=== PATIENT | female | born 2000 | race African-American/Black ===

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

== ENCOUNTER 2020-02-25 15:50 | Emergency (ER) | payer BC ==
--- NOTE | 2020-02-25 15:58 | PDOC ---
Rapid Medical Evaluation Time Seen by Provider: 02/25/20 15:55 Medical Evaluation: Allergies Allergy/AdvReac Type Severity Reaction Status Date / Time No Known Allergies Allergy Verified 03/30/19 16:48 02/25/20 15:55 19 year old female complaining of left ankle pain and left wrist pain s/p fall. PE: l wrist ttp to medial aspect and with ulnar dev. L ankle ttp over lateral mal Plan: XR Pt to precede to ED for further eval
[2020-02-25 15:59] VITALS: BP 142/74; PULSE 83; TEMP 98.7; BMI 23.3
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
--- OUTSIDE RECORDS SUMMARY | 2020-02-25 16:55 | XMS ---
:2000 Author Organization [facility] Care Team Providers Name Role Phone Valdovinos, Fela Unavailable SANDRINE BERGER Unavailable AGYANDEL EVERETT, SANDRINE Unavailable Re-disclosure Warning The records that you are about to access may contain information from federally- assisted alcohol or drug abuse programs. If such information is present, then the following federally mandated warning applies: This information has been disclosed to you from records protected by federal confidentiality rules (42 CFR part 2). The federal rules prohibit you from making any further disclosure of this information unless further disclosure is expressly permitted by the written consent of the person to whom it pertains or as otherwise permitted by 42 CFR part 2. A general authorization for the release of medical or other information is NOT sufficient for this purpose. The Federal rules restrict any use of the information to criminally investigate or prosecute any alcohol or drug abuse patient.The records that you are about to access may contain highly sensitive health information, the redisclosure of which is protected by Article 27-F of the [facility] Public Health law. If you continue you may haveaccess to information: Regarding HIV / AIDS; Provided by facilities licensed or operated by the [facility] Office of Mental Health; or Provided by the [facility] Office for People With Developmental Disabilities. If such information is present, then the following [facility] mandated warning applies: This information has been disclosed to you from confidential records which are protected by state law. State law prohibits you from making any further disclosure of this information without the specific written consent of the person to whom it pertains, or as otherwise permitted by law. Any unauthorized further disclosure in violation of state law may result in a fine or snf sentence or both. A general authorization for the release of medical or other information is NOT sufficient authorization for further disclosure. Allergies and Adverse Reactions Type Description Substance Reaction Status Data Source(s ) Allergy to No Known Allergies No known [facility] ([facility] substance allergies [facility] ([facility] ) Allergy to No Known Allergies No known [facility] ([facility] substance allergies [facility] ([facility] ) Encounters Encounter Providers Location Date Indications Data Source(s ) Outpatient<td Attender: SANDRINE Lay 03/27/2019 [facility] PM EST - [place] 0">WALKINS</td> 03/27/2019 Health nter) <td>[facility]td><td>[facility]</td><td> 03/27/2019</td> <td></td> Outpatient<td Attender: Fela Lay 03/27/2019 AMYPepe AY ([facility] ID="encounterTy [facility] 10:55:00 [facility] AM EST - [place]ighb [place] 1">PATIENT 03/27/2019 [facility]) ADVOCACY</td><t 11:59:00 d>Fela PM EST Valdovinos</td><td >[facility]</td><td> 03/27/2019</td> <td></td> Immunizations Vaccine Date Status Description Data Source(s) MMR 03/27/2019 completed Measles,Mumps, 1 03/27/2019 Left Act aisha [facility] 04:10:00 PM Rubella (MMR) Arm (Administere d) Neighborhood ([facility]) Insurance Providers Payer name Policy type / Policy ID Covered Covered republican's Policy Plan Coverage type republican ID relationship to Lopez Information lopez BC OUT OF [id number] [place] [id number] [facility] 78 BCBS of Individual 0 Self 0 [place] - Policy [place] of Individual 0 Self 0 [place] [id number] S [id number] Blue Cross 78 Blue Shield PPO Problems, Conditions, and Diagnoses Code Display Name Description Problem Type Effective Dates Data Source(s) [id number] No Active No Active Problem 03/27/2019 YAMILETH ([place] Problems Problems 12:00:00 AM [facility]) [id number] No Active No Active Problem 03/27/2019 YAMILETH ([place] Problems Problems 12:00:00 AM [facility]) Results ID Date Data Source [id number] 04/29/2019 10:58:48 AM EST GREENWA Y ([place] [id number] [facility]) Name Value Range Interpretation Description Data Source(s ) Supporting Code Document(s ) No Results No Results No Results YAMILETH ([facility] Recorded For [facility]) ID Date Data Source [id number] 03/27/2019 04:39:35 PM EST GREENWA Y ([place] [id number] [facility]) Name Value Range Interpretation Description Data Source(s ) Supporting Code Document(s ) No Results No Results No Results YAMILETH ([facility] For [facility]) Procedure Social History Code Duration Value Status Description Data Source(s ) Smoking 03/27/2019 smoking status completed YAMILETH ( [place] 04:39:34 PM [facility]) Vital Signs ID Date Data Source UNK Name Value Range Interpretation Code Description Data Source(s) PhenX - pain, 0 0 YAMILETH ([facility]) protocol Pt presents today for MMR vaccine Body surface area Derived from 1.71 m2 1.71 m2 YAMILETH ([facility]) Pt presents today for MMR vaccine Body mass index (BMI) [Percentile] 69 6 9 YAMILETH ([facility]) Pt presents today for MMR vaccine Body mass index (BMI) 23.6 kg/m2 23.6 kg/m2 GRE ENWAY ([place] [Ratio] [facility]) Pt presents today for MMR vaccine Body weight 142 [lb_av] 142 [lb_av] YAMILETH ( [facility]) Pt presents today for MMR vaccine Body height 65 [in_us] 65 [in_us] YAMILETH ([facility]) Pt presents today for MMR vaccine Body temperature 98.4 [degF] 98.4 [degF] AMYW AY ([facility]) Pt presents today for MMR vaccine Heart rate 93 /min 93 /min YAMILETH ([facility]) Pt presents today for MMR vaccine Diastolic blood pressure 69 mm[Hg] 69 mm[Hg] YAMILETH ([facility]) Pt presents today for MMR vaccine Systolic blood pressure 108 mm[Hg] 108 mm[Hg] Vamsi STEINER ([facility]) Pt presents today for MMR vaccine
== END 2020-02-25 17:02 | disposition home or self-care (01) ==
LOC: JERFT 15:50
DX: S63.502A Unspecified sprain of left wrist, initial encounter (principal); S93.492A Sprain of other ligament of left ankle, initial encounter
CPT/HCPCS: 73110-TC-LT-FY; 73610-TC-LT-FY; 99284-25

== ENCOUNTER 2020-07-19 22:06 | Emergency (ER) | payer BC ==
[2020-07-19 22:26] VITALS: BP 128/62; PULSE 114; TEMP 98.5; BMI 26.6
[2020-07-20] MEDS ORDERED: CEPHALEXIN MONOHYDRATE 500 MG CAPSULE (UD) PO ONE (00:39)
[2020-07-20] MEDS ORDERED: ACETAMINOPHEN 325 MG TABLET (FP) PO ONE (00:40)
[2020-07-20] MEDS ORDERED: ACETAMINOPHEN 325 MG TABLET (FP) ONE (01:02)
[2020-07-20] MEDS ORDERED: CEPHALEXIN MONOHYDRATE 500 MG CAPSULE (UD) ONE (01:02)
== END 2020-07-20 01:06 | disposition home or self-care (01) ==
LOC: JER 22:06
DX: S00.93XA Contusion of unspecified part of head, initial encounter (principal); T75.4XXA Electrocution, initial encounter
CPT/HCPCS: 99285-25